=== PATIENT | female | born 1985 | race Caucasian/White ===

== ENCOUNTER → 2021-04-01 11:04 | Outpatient (CLI) | payer OTHER, SELFPAY ==
[2021-04-01 19:46] LABS: SARS-CoV-2 RNA PCR Negative
== END ==
PROVIDERS: PCP Family Medicine Sports Medicine; Visit Provider Family Medicine Sports Medicine
DX: R05.9 Cough, unspecified (principal); R09.89 Other specified symptoms and signs involving the circulatory and respiratory systems; Z20.822 Contact with and (suspected) exposure to COVID-19
CPT/HCPCS: C9803; U0003; U0005